=== PATIENT | male | born 1975 | race African-American/Black ===

== ENCOUNTER → 2016-10-02 | Outpatient (CLI) | payer BC ==
[2016-05-17 18:20] VITALS: BP 197/116
[~2016-10-02] MED LIST: AMLO5TAB4 PO; Aspirin PO; CYCL10TA2 PO; HYDR-971 PO; Hydralazine Hcl PO; Hydrocodone/Acetaminophen PO; LABE200T24 PO; LOSA50TA2 PO; NAPR500T8 PO; PANT40TA3 PO; Triamterene/Hydrochlorothiazid PO
--- NOTE | 2016-10-02 08:52 | KCIC ---
PROCEDURE Right ankle radiographs HISTORY Right medial ankle pain for 1 month off and on becoming more constant COMPARISON None FINDINGS Three views of the right ankle are submitted. No acute fracture or dislocation is identified. There is some soft tissue swelling greater laterally about the ankle. There is tiny posterior calcaneal enthesophyte. IMPRESSION 1. No acute osseous abnormality is identified. 2. There is tiny posterior calcaneal enthesophyte. There is some soft tissue swelling. Electronically signed by: Benton Mosley MD (Oct 02, 2016 08:51:05)
== END | disposition home or self-care (01) ==
LOC: KCIC 08:13
PROVIDERS: ATTEND Family Medicine
DX: M77.31 Calcaneal spur, right foot (principal); R60.9 Edema, unspecified
CPT/HCPCS: 73610

== ENCOUNTER → 2017-01-07 | Outpatient (CLI) | payer BC ==
[2016-05-17 18:20] VITALS: BP 197/116
--- NOTE | 2017-01-07 13:16 | KCIC ---
MR of the right ankle and MR of the right posterior foot. HISTORY: Posterior tibial tendon tear. Worsening right medial ankle pain and swelling. Instability. TECHNIQUE: Routine multiplanar sequences are obtained. Right ankle Small partial tear of the posterior tibial tendon at its navicular insertion. No high-grade tear or rupture. Minimal surrounding tendon sheath fluid. The flexor tendons are intact, with minimal tendon sheath fluid. No acute medial ligament tear. Small partial tear of the peroneus longus tendon just distal to the lateral malleolus. No high-grade tear or rupture. Minimal surrounding fluid. The anterior talofibular ligament is thickened and heterogeneous as is the calcaneofibular ligament and posterior talofibular ligament, compatible with partial tearing or more chronic scarring, depending on the acuity of injury or symptoms. Anterior inferior tibiofibular ligament is also demonstrates evidence of scarring or less likely partial tearing. Anterior tibial and extensor tendons are intact. The Achilles tendon is intact. There is a tiny fluid collection or cyst along the anterior surface of the distal Achilles tendon. Tiny calcaneal enthesophyte at the insertion No acute plantar fasciitis. Subtalar joints are patent. The tarsal sinus is edematous. No internal architectural distortion. Talar dome is intact. No evidence of bone lesion or acute fracture. There is trace fluid in the talonavicular joint recess, superolaterally. Trace fluid in the tibiotalar joint and subtalar joint. Right foot Mild intramuscular edema at the plantar aspect of the foot. The Lisfranc ligament complex appears intact as does tarsometatarsal alignment. Subchondral cystic change at the distal navicular bone and intermediate cuneiform bone appears degenerative, and there is osteophyte formation the superior and medial aspect of this joint. Degenerative change and dorsal spurring also identified at the talonavicular joint. IMPRESSION: 1. Small partial tear of the posterior tibial tendon at the navicular attachment. No high-grade tear or rupture. 2. Small partial tear of the peroneus longus tendon just distal to the lateral malleolus without high-grade tear or rupture. 3. Partial tearing versus more chronic scarring of the lateral ankle ligaments and the anterior inferior tibial fibular syndesmotic ligament. 4. Degenerative changes at the midfoot. Electronically signed by: Ranulfo Mcdaniels MD (01/07/2017 1:13 PM)
== END | disposition home or self-care (01) ==
LOC: KCIC MRI 10:40
PROVIDERS: ATTEND Podiatrist Foot & Ankle Surgery
DX: S96.811A Strain of other specified muscles and tendons at ankle and foot level, right foot, initial encounter (principal); X58.XXXA Exposure to other specified factors, initial encounter; Y93.9 Activity, unspecified; Y92.9 Unspecified place or not applicable; Y99.9 Unspecified external cause status
CPT/HCPCS: 73718; 73721

== ENCOUNTER → 2017-02-17 | Outpatient (CLI) | payer BC ==
[2016-05-17 18:20] VITALS: BP 197/116
== END | disposition home or self-care (01) ==
LOC: ECHO 08:43
PROVIDERS: ATTEND Internal Medicine Cardiovascular Disease
DX: R94.31 Abnormal electrocardiogram [ECG] [EKG] (principal)
CPT/HCPCS: 93306

== ENCOUNTER → 2017-09-15 | Outpatient (CLI) | payer BC | END | disposition home or self-care (01) | LOC: KCIC MRI 08:31 | DX: S92.001A Unspecified fracture of right calcaneus, initial encounter for closed fracture (principal); M76.821 Posterior tibial tendinitis, right leg; X58.XXXA Exposure to other specified factors, initial encounter; Y93.89 Activity, other specified; Y92.89 Other specified places as the place of occurrence of the external cause; Y99.8 Other external cause status | CPT/HCPCS: 73721 ==

== ENCOUNTER 2019-05-13 21:14 | Inpatient (IN) | payer SELFPAY ==
[~2019-05-13] VITALS: Ht 180.3 cm; Wt 178.8 kg
[~2019-05-13 21:14] MED LIST changes: +HYDR-3164 PO; -HYDR-971 PO; +LOSA-73 PO; -LOSA50TA2 PO; -PANT40TA3 PO; +PANT40TA77 PO
[2019-05-13 21:45] LABS: BASO # 0.1 x10^3/uL (0.0-0.2); BASO % 1 % (0-3); EOS # 0.1 x10^3/uL (0.0-0.7); EOS % 2 % (0-3); HEMATOCRIT 49.8 % (39.0-53.0); HEMOGLOBIN 15.8 g/dL (13.0-17.5); LYMPH # 1.4 x10^3/uL (1.0-4.8); LYMPH % 22 % (24-48); MEAN CORPUSCULAR HEMOGLOBIN 26 pg (25-35); MEAN CORPUSCULAR HGB CONC 32 g/dL (31-37); MEAN CORPUSCULAR VOLUME 82 fL (79-100); MONO # 0.7 x10^3/uL (0.0-1.1); MONO % 11 % (0-9); NEUT % 65 % (31-73); PLATELET COUNT 230 x10^3/uL (140-400); RED BLOOD COUNT 6.08 x10^6/uL (4.30-5.70); RED CELL DISTRIBUTION WIDTH 16.9 % (11.5-14.5); WHITE BLOOD COUNT 6.2 x10^3/uL (4.0-11.0)
[2019-05-13] MEDS ORDERED: NITROGLYCERIN PREMIX 250 ML IV ONE (21:45)
[2019-05-13] MEDS ORDERED: ASPIRIN CHEWABLE 81 MG TABLET. PO ONE (21:45)
[2019-05-13 21:54] LABS: CALCIUM 9.1 mg/dL (8.5-10.1); CREATININE 1.3 mg/dL (0.7-1.3); GFR 73.3; POTASSIUM 3.7 mmol/L (3.5-5.1)
[2019-05-13 21:55] LABS: PROTHROMBIN TIME PATIENT 12.3 SEC (11.7-14.0)
[2019-05-13] MEDS ORDERED: LABETALOL 20 MG/4 ML DISP.SYRIN. IVP ONE (22:00)
[2019-05-13 22:01] LABS: ALBUMIN 3.4 g/dL (3.4-5.0); ALBUMIN/GLOBULIN RATIO 0.6 (1.0-1.7); TOTAL BILIRUBIN 0.4 mg/dL (0.2-1.0); TOTAL PROTEIN 8.7 g/dL (6.4-8.2)
[2019-05-13] MEDS: NITROGLYCERIN SUBLINGUAL 0.4 MG BOTTLE OF 25. SL PRN ×2 (22:07→22:22)
[2019-05-13] MEDS ORDERED: NITROGLYCERIN SUBLINGUAL 0.4 MG BOTTLE OF 25. SL PRN (23:30)
[2019-05-13] MEDS ORDERED: NITROGLYCERIN OINT 1 GM PACKET. TP ONE (23:30)
[2019-05-14] VITALS (26 sets, daily range): BP systolic 136–223; BP diastolic 56–156
--- NOTE | 2019-05-14 00:29 | PHYS DOC ---
Past Medical History Past Medical History: Anxiety, CHF, Hypertension, Other Additional Past Medical Histor: MENINGITIS, PREDIABETES, SLEEP APNEA Past Surgical History: Appendectomy Additional Past Surgical Histo: hernia repair, right thumb/index/third finger firework amputation, R ANKLE Alcohol Use: None Drug Use: None Adult General Chief Complaint Chief Complaint: SHORTNESS OF BREATH HPI HPI Patient is a 44 year old male who presents with 1 day of shortness of breath a nd chest discomfort patient says that is just really hard to get a deep breath he feels like he is gasping for air it is worse when he is lying flat or trying to walk across the room. He says he gets chest pain when asked him how to describe it he says it is just so hard to get air it feels tight when he is breathing. He also feels like there is some pressure in the chest like as though he was hit on the chest at times. This has been constant all day long worse with exertion but that worse around 5 PM patient has been off of his blood pressure medication for a while now Review of Systems Review of Systems Constitutional: Denies fever or chills [] Eyes: Denies change in visual acuity, redness, or eye pain [] HENT: Denies nasal congestion or sore throat [] Respiratory: : Denies dysuria or hematuria [] Musculoskeletal: Denies back pain or joint pain [] Integument: Denies rash or skin lesions [] Neurologic: Denies headache, focal weakness or sensory changes [] Endocrine: Denies polyuria or polydipsia [] All other systems were reviewed and found to be within normal limits, except as documented in this note. Current Medications Current Medications Current Medications Medications (Trade) Dose Ordered Sig/Stacie Start Time Stop Time Status Last Admin Dose Admin Aspirin (Children'S Aspirin) 324 mg 1X ONCE 05/13/19 21:45 05/13/19 21:46 DC 05/13/19 21:59 324 MG Labetalol HCl (Normodyne Iv Push) 20 mg 1X ONCE 05/13/19 22:00 05/13/19 22:01 DC 05/13/19 21:58 20 MG Nitroglycerin (Nitrostat) 0.4 mg PRN Q5MIN PRN 05/13/19 22:00 05/13/19 23:31 DC 05/13/19 22:22 0.4 MG Nitroglycerin/ Dextrose 250 ml @ 0 mls/hr 1X ONCE 05/13/19 21:45 05/13/19 21:46 DC Allergies Allergies Allergies Coded Allergies Type Severity Reaction Last Updated Verified Cephalosporins Allergy Intermediate SLIGHT ITCHING WITH ROCEPHIN 12/30/14 Yes Physical Exam Physical Exam Constitutional: Well developed, OBESE HENT: Normocephalic, atraumatic, bilateral external ears normal, oropharynx moist, no oral exudates, nose normal. [] Eyes: PERRLA, EOMI, conjunctiva normal, no discharge. [] Neck: Normal range of motion, no tenderness, supple, no stridor. [] Cardiovascular:H very difficult cardiopulmonary exam due to the patient's body habitus however I did feel that there were some crackles at the bilateral lung bases more on the right. Mild increase in respiratory effort Lungs & Thorax: See above Abdomen: Bowel sounds normal, soft, no tenderness, no masses, no pulsatile masses. [] Skin: Warm, dry, no erythema, no rash. [] Back: No tenderness, no CVA tenderness. [] Extremities: No tenderness, no cyanosis, no clubbing, ROM intact, dependent edema due to body habitus most likely Neurologic: Alert and oriented X 3, normal motor function, normal sensory function, no focal deficits noted. [] Psychologic: Affect normal, judgement normal, mood normal. [] Current Patient Data Vital Signs Vital Signs Date Time Temp Pulse Resp B/P (MAP) Pulse Ox O2 Delivery O2 Flow Rate FiO2 05/13/19 22:22 73 185/109 05/13/19 21:15 98.3 24 99 Room Air 98.3 Initial BP was 240/160 Lab Values Laboratory Tests Test 05/13/19 21:27 White Blood Count 6.2 x10^3/uL (4.0-11.0) Red Blood Count 6.08 x10^6/uL (4.30-5.70) H Hemoglobin 15.8 g/dL (13.0-17.5) Hematocrit 49.8 % (39.0-53.0) Mean Corpuscular Volume 82 fL (79-100) Mean Corpuscular Hemoglobin 26 pg (25-35) Mean Corpuscular Hemoglobin Concent 32 g/dL (31-37) Red Cell Distribution Width 16.9 % (11.5-14.5) H Platelet Count 230 x10^3/uL (140-400) Neutrophils (%) (Auto) 65 % (31-73) Lymphocytes (%) (Auto) 22 % (24-48) L Monocytes (%) (Auto) 11 % (0-9) H Eosinophils (%) (Auto) 2 % (0-3) Basophils (%) (Auto) 1 % (0-3) Neutrophils # (Auto) 4.0 x10^3/uL (1.8-7.7) Lymphocytes # (Auto) 1.4 x10^3/uL (1.0-4.8) Monocytes # (Auto) 0.7 x10^3/uL (0.0-1.1) Eosinophils # (Auto) 0.1 x10^3/uL (0.0-0.7) Basophils # (Auto) 0.1 x10^3/uL (0.0-0.2) Prothrombin Time 12.3 SEC (11.7-14.0) Prothrombin Time INR 0.9 (0.8-1.1) Sodium Level 143 mmol/L (136-145) Potassium Level 3.7 mmol/L (3.5-5.1) Chloride Level 102 mmol/L (98-107) Carbon Dioxide Level 34 mmol/L (21-32) H Anion Gap 7 (6-14) Blood Urea Nitrogen 17 mg/dL (8-26) Creatinine 1.3 mg/dL (0.7-1.3) Estimated GFR (Cockcroft-Gault) 73.3 BUN/Creatinine Ratio 13 (6-20) Glucose Level 127 mg/dL (70-99) H Calcium Level 9.1 mg/dL (8.5-10.1) Total Bilirubin 0.4 mg/dL (0.2-1.0) Aspartate Amino Transferase (AST) 25 U/L (15-37) Alanine Aminotransferase (ALT) 31 U/L (16-63) Alkaline Phosphatase 67 U/L (46-116) Troponin I Quantitative 0.021 ng/mL (0.000-0.055) QL-Jfr-D-Type Natriuretic Peptide 696 pg/mL (0-124) H Total Protein 8.7 g/dL (6.4-8.2) H Albumin 3.4 g/dL (3.4-5.0) Albumin/Globulin Ratio 0.6 (1.0-1.7) L Laboratory Tests 05/13/19 21:27 Laboratory Tests 05/13/19 21:27 EKG EKG []EKG shows a normal sinus rhythm with an incomplete right bundle branch block in light of that there was no obvious STEMI seen borderline ST elevation in V1 and V2 but really did not meet criteria for STEMI there is also nonspecific changes laterally as well. Rate of 78 QTC 494 Radiology/Procedures Radiology/Procedures [] Impressions: My interpretation of chest x-ray did show cardiomegaly as well as bilateral mild pulmonary edema most likely Course & Med Decision Making Course & Med Decision Making Pertinent Labs and Imaging studies reviewed. (See chart for details) [] Critical care time was 35 minutes exclusive of procedures. For management of hypertensive urgency with blood pressure of 240/160 on initial evaluation requiring IV blood pressure control. In summary this is a 44-year-old male with a prior history of hypertension obesity who is presenting with dyspnea and chest pain likely related to hypertensive urgency initial troponin negative EKG nonspecific but no obvious STEMI was identified chest x-ray looks like poor inspiration due to body habitus but there may be some mild pulmonary edema present he had improved blood pressure and improved symptoms after nitroglycerin sublingual and IV labetalol. We actually did not have to end up to initiating a nitro drip at this time Nitropaste was added blood pressure on reevaluation was in the 160-180 range patient be admitted to the service of Dr. Chisholm for serial troponins cardiology consultation and further evaluation and management. At this point time no obvious evidence of PE or dissection Dragon Disclaimer Dragon Disclaimer This electronic medical record was generated, in whole or in part, using a voice recognition dictation system. Departure Departure Impression: Primary Impression: Accelerated hypertension Additional Impression: Chest pain Disposition: ADMITTED INPATIENT Admitting Physician: HIMS Condition: STABLE Referrals: EFFIE CALLES MD (PCP) Problem Qualifiers CARISA MARIN MD May 14, 2019 00:29
--- NOTE | 2019-05-14 02:00 | NUR ---
pt admitted with chest pain, hypertensive crisis. a/o x4, bp elevated on nitro gtt. admission packet given, poc explained call light in place will cont to monitor pt status and safety. pmrn
[2019-05-14] MEDS ORDERED: MORPHINE SULFATE 4 MG/ML VIAL. IV PRN (02:15)
[2019-05-14] MEDS ORDERED: NITROGLYCERIN PREMIX 250 ML IV PRN (04:45)
--- NOTE | 2019-05-14 04:47 | RAD ---
Study: PORTABLE CHEST 1V Indication: Shortness of breath. Comparison: 12/25/2014 Findings: The cardiomediastinal silhouette is enlarged. The central vascular structures are congested. Increased interstitial markings. No large layering effusion is appreciated however the lower lung zones, particularly the left, not well evaluated due to beam attenuation. No pneumothorax. No lobar infiltrate. Impression: Cardiomegaly, central vascular congestion and pulmonary edema. No large effusion identified however the lower lung zones are not well evaluated due to beam attenuation. Electronically signed by: CLIFTON HUBER MD (05/14/2019 4:43 AM) [facility]
[2019-05-14] MEDS ORDERED: FURO-68 PO (04:55)
[2019-05-14] MEDS ORDERED: POTA20TA82 PO (04:55)
[2019-05-14] MEDS ORDERED: ACET500T68 PO (04:55)
[2019-05-14] MEDS ORDERED: HYDR12.58 PO (04:55)
[2019-05-14] MEDS ORDERED: CARV25TA2 PO (04:55)
[2019-05-14] MEDS ORDERED: CEPH500C PO (04:55)
[2019-05-14] MEDS ORDERED: LISI1TAB19 PO (04:55)
[2019-05-14] MEDS ORDERED: NON FORMULARY ITEM (Lisinopril/Hydrochlorothiazide (Lisinopril-Hctz 20-12.5 Mg Tab) 1 TAB) PO SCH (09:00)
[2019-05-14] MEDS ORDERED: LISINOPRIL 20 MG TABLET PO SCH (09:00)
[2019-05-14] MEDS: CARVEDILOL 12.5 MG TABLET. PO SCH ×2 (09:12→17:23)
[2019-05-14] MEDS: amLODIPine BESYLATE 10 MG TABLET PO SCH (09:12)
[2019-05-14] MEDS: LABETALOL 20 MG/4 ML DISP.SYRIN. IVP PRN (09:20)
--- NOTE | 2019-05-14 11:15 | EKG ---
[facility] [address] [place] [address] Test Date: 2019-05-13 Test Time: 21:19:53 Pat Name: ZARA CONLEY Department: Room: 210 1 Gender: M Entry Level Financial Analyst: : 1975 Requested By: CARISA MARIN Order Number: [id number] Reading MD: Geronimo Cisneros MD Measurements Intervals [place] Rate: 78 P: 66 MI: 182 QRS: 52 QRSD: 110 T: 104 QT: 430 QTc: 494 Interpretive Statements SINUS RHYTHM RBBB NON-SPECIFIC ST/T CHANGES Electronically Signed On 05-23-2019 9:52:05 CDT by Geronimo Cisneros MD
--- NOTE | 2019-05-14 11:22 | PDOC1 ---
History and Physical Date of Admission Date of Admission DATE: 05/14/19 TIME: 11:21 Source Source: Chart review, Patient History of Present Illness History of Present Illness Mr. Billy, is a 44 year old male admit with chest pain. He has one day of severe pain with weakness and shortness of breath. He has new trouble with breathing and it causes him pain, complained od 10/10 pain, but then was incoherent after 4mg IV morphine given this AM still in pain, dyspnea with chest pain, has been unable to sleep., has new orthopnea, and pain with dyspnea on exertion. He also feels like there is some pressure in the chest like as though he was hit on the chest at times. T Past Medical History Cardiovascular: HTN, Hyperlipidemia Pulmonary: Other CENTRAL NERVOUS SYSTEM: Other GI: GERD Heme/Onc: No pertinent hx Hepatobiliary: No pertinent hx Psych: Depression Musculoskeletal: Osteoarthritis, Other Rheumatologic: No pertinent hx Infectious disease: No pertinent hx Renal/: No pertinent hx Endocrine: No pertinent hx Past Surgical History Past Surgical History: Other Family History Family History: Coronary Artery Disease Social History Smoke: <1 pack per day ALCOHOL: rare Drugs: None Current Problem List Problem List Problems Medical Problems: (1) Accelerated hypertension Status: Acute (2) Chest pain Status: Acute Current Medications Current Medications Current Medications Labetalol HCl (Normodyne Iv Push) 20 mg 1X ONCE IVP Last administered on 05/13/19at 21:58; Start 05/13/19 at 22:00; Stop 05/13/19 at 22:01; Status DC Nitroglycerin/ Dextrose 250 ml @ 0 mls/hr 1X ONCE IV Last administered on 05/14/19at 01:02; Start 05/13/19 at 21:45; Stop 05/13/19 at 21:46; Status DC Aspirin (Children'S Aspirin) 324 mg 1X ONCE PO Last administered on 05/13/19at 21:59; Start 05/13/19 at 21:45; Stop 05/13/19 at 21:46; Status DC Nitroglycerin (Nitrostat) 0.4 mg PRN Q5MIN PRN SL CHEST PAIN Last administered on 05/13/19at 22:22; Start 05/13/19 at 22:00; Stop 05/13/19 at 23:31; Status DC Nitroglycerin (Nitro-Bid Oint) 1 inch 1X ONCE TP Last administered on 05/13/19at 23:42; Start 05/13/19 at 23:30; Stop 05/13/19 at 23:31; Status DC Nitroglycerin (Nitrostat) 0.4 mg PRN Q5MIN PRN SL CHEST PAIN; Start 05/13/19 at 23:30; Stop 05/14/19 at 23:29 Labetalol HCl (Normodyne Iv Push) 20 mg PRN Q2HR PRN IVP ELEVATED BP, SEE COMMENTS Last administered on 05/14/19at 09:20; Start 05/13/19 at 23:30 Morphine Sulfate (Morphine Sulfate) 4 mg PRN Q4HRS PRN IV pain Last administered on 05/14/19at 06:30; Start 05/14/19 at 02:15 Nitroglycerin/ Dextrose 250 ml @ 1.5 mls/hr CONT PRN IV SEE I/O RECORD; Start 05/14/19 at 04:45 Acetaminophen (Tylenol) 500 mg PRN Q6HRS PRN PO MILD PAIN / TEMP; Start at 08:33 Amlodipine Besylate (Norvasc) 10 mg DAILY PO Last administered on 05/14/19at 09:12; Start 05/14/19 at 09:00 Furosemide (Lasix) 40 mg DAILY PO ; Start 05/14/19 at 09:00 Carvedilol (Coreg) 25 mg BIDWMEALS PO Last administered on 05/14/19at 09:12; Start 05/14/19 at 09:00 Cephalexin HCl (Keflex) 500 mg BID PO ; Start 05/14/19 at 09:00 Non-Formulary Medication (Lisinopril/ Hydrochlorothiazide (Lisinopril-Hctz 20- 12.5 Mg Tab)) 1 tab DAILY PO ; Start 05/14/19 at 09:00; Status UNV Potassium Chloride (Klor-Con) 20 meq DAILYWBKFT PO ; Start 05/14/19 at 09:00 Lisinopril (Prinivil) 20 mg DAILY PO ; Start 05/14/19 at 09:00 Hydrochlorothiazide (Microzide) 12.5 mg DAILY PO ; Start 05/14/19 at 09:00 Active Scripts Active Norvasc (Amlodipine Besylate) 5 Mg Tablet 10 Mg PO DAILY Reported Carvedilol 25 Mg Tablet 25 Mg PO BIDWMEALS Cephalexin 500 Mg Capsule 1 Cap PO BID Potassium Chloride 20 Meq Tablet.er 20 Meq PO DAILY Acetaminophen 500 Mg Tablet 500 Mg PO Q6HRS Lisinopril-Hctz 20-12.5 Mg Tab (Lisinopril/Hydrochlorothiazide) 1 Each Tablet 1 Tab PO DAILY Hydrochlorothiazide Tablet (Hydrochlorothiazide) 12.5 Mg Tablet 12.5 Mg PO DAILY Lasix (Furosemide) 40 Mg Tablet 1 Tab PO DAILY Allergies Allergies: Coded Allergies: ceftriaxone (Verified Allergy, Mild, mild itching, 05/14/19) Tolerates Keflex ROS General: YES: Chills, Fatigue, Malaise PSYCHOLOGICAL ROS: YES: Irritablity, Sleep disturbances; No: Anxiety, Behavioral Disorder, Concentration difficultie, Decreased libido, Depression, Disorientation, Hallucinations, Hostility, Memory difficulties, Mood Swings, Obsessive thoughts, Physical abuse, Sexual abuse, Suicidal ideation, Other Eyes: No Blurry vision, No Decreased vision, No Double vision, No Dry eyes, No Excessive tearing, No Eye Pain, No Itchy Eyes, No Loss of vision, No Photophobia, No Scotomata, No Uses contacts, No Uses glasses, No Other HEENT: YES: Heacaches Respiratory: YES: Shortness of breath, SOB with excertion; No: Cough, Hemoptysis, Orthopnea, Pleuritic Pain, Sputum Changes, Stridor, Tachypnea, Wheezing, Other Cardiovascular: yes Chest Pain, yes Orthopnea, yes Edema, yes Other Gastrointestinal: Yes Nausea; No Vomiting, No Abdominal Pain, No Diarrhea, No Constipation, No Melena, No Hematochezia, No Other Genitourinary: No Dysuria, No Frequency, No Incontinence, No Hematuria, No Retention, No Discharge, No Urgency, No Pain, No Flank Pain, No Other, No , No , No , No , No , No , No Musculoskeletal: Yes Gait Disturbance, Yes Joint Pain, Yes Joint Stiffness, Yes Pain In: (ankle, chest); No Joint Swelling, No Muscle Pain, No Muscular Weakness, No Swelling In:, No Other Neurological: Yes Gait Disturbance; No Behavorial Changes, No Bowel/Bladder ControlChng, No Confusion, No Dizziness, No Headaches, No Impaired Coord/balance, No Memory Loss, No Nu mbness/Tingling, No Seizures, No Speech Problems, No Tremors, No Visual Changes, No Weakness, No Other Skin: No Dry Skin, No Eczema, No Hair Changes, No Lumps, No Mole Changes, No Mottling, No Nail Changes, No Pruritus, No Rash, No Skin Lesion Changes, No Other, No Acne Physical Exam General: Alert, Oriented X3, Cooperative, mild distress, moderate distress HEENT: PERRLA, EOMI, Mucous membr. moist/pink Lungs: Clear to auscultation Heart: S1S2, RRR Abdomen: Normal bowel sounds, Soft Extremities: No clubbing, Other (right ankle painful, poor morbility) Skin: No rashes Neuro: Normal speech, Sensation intact Psych/Mental Status: Mental status NL, Mood NL Vitals Vitals Vital Signs Date Time Temp Pulse Resp B/P (MAP) Pulse Ox O2 Delivery O2 Flow Rate FiO2 05/14/19 09:20 78 223/87 05/14/19 07:00 Nasal Cannula 2.0 05/14/19 02:16 98.2 20 98.2 05/14/19 01:55 96 Labs Labs Laboratory Tests Test 05/13/19 21:27 05/14/19 02:40 05/14/19 05:30 White Blood Count 6.2 x10^3/uL (4.0-11.0) Red Blood Count 6.08 x10^6/uL (4.30-5.70) Hemoglobin 15.8 g/dL (13.0-17.5) Hematocrit 49.8 % (39.0-53.0) Mean Corpuscular Volume 82 fL (79-100) Mean Corpuscular Hemoglobin 26 pg (25-35) Mean Corpuscular Hemoglobin Concent 32 g/dL (31-37) Red Cell Distribution Width 16.9 % (11.5-14.5) Platelet Count 230 x10^3/uL (140-400) Neutrophils (%) (Auto) 65 % (31-73) Lymphocytes (%) (Auto) 22 % (24-48) Monocytes (%) (Auto) 11 % (0-9) Eosinophils (%) (Auto) 2 % (0-3) Basophils (%) (Auto) 1 % (0-3) Neutrophils # (Auto) 4.0 x10^3/uL (1.8-7.7) Lymphocytes # (Auto) 1.4 x10^3/uL (1.0-4.8) Monocytes # (Auto) 0.7 x10^3/uL (0.0-1.1) Eosinophils # (Auto) 0.1 x10^3/uL (0.0-0.7) Basophils # (Auto) 0.1 x10^3/uL (0.0-0.2) Prothrombin Time 12.3 SEC (11.7-14.0) Prothromb Time International Ratio 0.9 (0.8-1.1) Sodium Level 143 mmol/L (136-145) Potassium Level 3.7 mmol/L (3.5-5.1) Chloride Level 102 mmol/L (98-107) Carbon Dioxide Level 34 mmol/L (21-32) Anion Gap 7 (6-14) Blood Urea Nitrogen 17 mg/dL (8-26) Creatinine 1.3 mg/dL (0.7-1.3) Estimated GFR (Cockcroft-Gault) 73.3 BUN/Creatinine Ratio 13 (6-20) Glucose Level 127 mg/dL (70-99) Calcium Level 9.1 mg/dL (8.5-10.1) Total Bilirubin 0.4 mg/dL (0.2-1.0) Aspartate Amino Transf (AST/SGOT) 25 U/L (15-37) Alanine Aminotransferase (ALT/SGPT) 31 U/L (16-63) Alkaline Phosphatase 67 U/L (46-116) Troponin I Quantitative 0.021 ng/mL (0.000-0.055) < 0.017 ng/mL (0.000-0.055) < 0.017 ng/mL (0.000-0.055) BB-Lti-Q-Type Natriuretic Peptide 696 pg/mL (0-124) Total Protein 8.7 g/dL (6.4-8.2) Albumin 3.4 g/dL (3.4-5.0) Albumin/Globulin Ratio 0.6 (1.0-1.7) Laboratory Tests Test 05/13/19 21:27 05/14/19 02:40 05/14/19 05:30 White Blood Count 6.2 x10^3/uL (4.0-11.0) Red Blood Count 6.08 x10^6/uL (4.30-5.70) Hemoglobin 15.8 g/dL (13.0-17.5) Hematocrit 49.8 % (39.0-53.0) Mean Corpuscular Volume 82 fL (79-100) Mean Corpuscular Hemoglobin 26 pg (25-35) Mean Corpuscular Hemoglobin Concent 32 g/dL (31-37) Red Cell Distribution Width 16.9 % (11.5-14.5) Platelet Count 230 x10^3/uL (140-400) Neutrophils (%) (Auto) 65 % (31-73) Lymphocytes (%) (Auto) 22 % (24-48) Monocytes (%) (Auto) 11 % (0-9) Eosinophils (%) (Auto) 2 % (0-3) Basophils (%) (Auto) 1 % (0-3) Neutrophils # (Auto) 4.0 x10^3/uL (1.8-7.7) Lymphocytes # (Auto) 1.4 x10^3/uL (1.0-4.8) Monocytes # (Auto) 0.7 x10^3/uL (0.0-1.1) Eosinophils # (Auto) 0.1 x10^3/uL (0.0-0.7) Basophils # (Auto) 0.1 x10^3/uL (0.0-0.2) Prothrombin Time 12.3 SEC (11.7-14.0) Prothromb Time International Ratio 0.9 (0.8-1.1) Sodium Level 143 mmol/L (136-145) Potassium Level 3.7 mmol/L (3.5-5.1) Chloride Level 102 mmol/L (98-107) Carbon Dioxide Level 34 mmol/L (21-32) Anion Gap 7 (6-14) Blood Urea Nitrogen 17 mg/dL (8-26) Creatinine 1.3 mg/dL (0.7-1.3) Estimated GFR (Cockcroft-Gault) 73.3 BUN/Creatinine Ratio 13 (6-20) Glucose Level 127 mg/dL (70-99) Calcium Level 9.1 mg/dL (8.5-10.1) Total Bilirubin 0.4 mg/dL (0.2-1.0) Aspartate Amino Transf (AST/SGOT) 25 U/L (15-37) Alanine Aminotransferase (ALT/SGPT) 31 U/L (16-63) Alkaline Phosphatase 67 U/L (46-116) Troponin I Quantitative 0.021 ng/mL (0.000-0.055) < 0.017 ng/mL (0.000-0.055) < 0.017 ng/mL (0.000-0.055) EX-Sdy-V-Type Natriuretic Peptide 696 pg/mL (0-124) Total Protein 8.7 g/dL (6.4-8.2) Albumin 3.4 g/dL (3.4-5.0) Albumin/Globulin Ratio 0.6 (1.0-1.7) VTE Prophylaxis Ordered VTE Prophylaxis Devices: Yes VTE Pharmacological Prophylaxi: No Assessment/Plan Assessment/Plan chest pain, angina accelerated, malignant hypertension morbid obesity, BMI 53 tobacco use disorder acute on chronic pain acute diastolc CHF longstanding hypertension RITA MCLAUGHLIN MD May 14, 2019 11:22
[2019-05-14] MEDS ORDERED: LISINOPRIL 20 MG TABLET PO ONE (12:00)
[2019-05-14] MEDS: CEPHALEXIN 250 MG CAPSULE. PO SCH ×2 (12:47→20:19)
[2019-05-14] MEDS: POTASSIUM CHLORIDE 20 MEQ TABLET.ER. PO SCH (12:48)
[2019-05-14] MEDS: hydroCHLOROthiazide 12.5 MG CAPSULE PO SCH (12:49)
[2019-05-14] MEDS: hydrALAZINE 25 MG TABLET PO SCH ×2 (12:49→20:19)
[2019-05-14] MEDS: FUROSEMIDE 40 MG TABLET. PO SCH (12:50)
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
[2019-05-14] MEDS: ACETAMINOPHEN 500 MG TABLET PO PRN (17:23)
[2019-05-15] VITALS (7 sets, daily range): BP systolic 112–197; BP diastolic 53–100
[2019-05-15] MEDS: LABETALOL 20 MG/4 ML DISP.SYRIN. IVP PRN (04:24)
[2019-05-15] MEDS: ACETAMINOPHEN 500 MG TABLET PO PRN (04:58)
[2019-05-15 06:25] LABS: CALCIUM 8.9 mg/dL (8.5-10.1); CREATININE 1.1 mg/dL (0.7-1.3); GFR 88.8; POTASSIUM 4.1 mmol/L (3.5-5.1)
[2019-05-15 06:26] LABS: CHOLESTEROL/HDL RATIO 3.8
[2019-05-15] MEDS: hydroCHLOROthiazide 12.5 MG CAPSULE PO SCH (09:29)
[2019-05-15] MEDS: FUROSEMIDE 40 MG TABLET. PO SCH (09:29)
[2019-05-15] MEDS: CEPHALEXIN 250 MG CAPSULE. PO SCH ×2 (09:29→21:00)
[2019-05-15] MEDS: POTASSIUM CHLORIDE 20 MEQ TABLET.ER. PO SCH (09:29)
[2019-05-15] MEDS: hydrALAZINE 25 MG TABLET PO SCH (09:33)
[2019-05-15] MEDS: amLODIPine BESYLATE 10 MG TABLET PO SCH (09:33)
[2019-05-15] MEDS: LISINOPRIL 20 MG TABLET PO SCH (09:34)
[2019-05-15] MEDS: CARVEDILOL 12.5 MG TABLET. PO SCH ×2 (09:35→18:00)
--- NOTE | 2019-05-15 10:31 | RAD ---
ANKLE RIGHT 3V 05/15/2019 9:44 AM INDICATION: Chronic right ankle and foot pain COMPARISON: MRI right ankle 09/15/2017, right ankle radiograph 10/02/2016 TECHNIQUE: 3 views the right ankle are provided. FINDINGS/ IMPRESSION: 1. Interval talocalcaneal arthrodesis is noted with 3 partially threaded screws. No significant lucency is identified surrounding the hardware. There is no acute fracture. 2. There may be small ankle joint effusion. 3. Tibial plafond and talar dome are intact. Ankle mortise is congruent. Mild to moderate soft tissue swelling. If there is persistent clinical concern, short-term follow-up radiographs or cross-sectional imaging may be of benefit. Electronically signed by: Brook Clayton MD (05/15/2019 10:28 AM) [facility]
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
[2019-05-15] MEDS ORDERED: FURO-68 PO (12:32)
[2019-05-15] MEDS ORDERED: LISI-130 PO (12:32)
[2019-05-15] MEDS ORDERED: AMLO10TA8 PO (12:32)
[2019-05-15] MEDS ORDERED: CARV25TA2 PO (12:32)
[2019-05-15] MEDS ORDERED: HYDR12.58 PO (12:32)
[2019-05-15] MEDS ORDERED: POTA20TA82 PO (12:32)
--- NOTE | 2019-05-15 13:57 | NUR ---
SS following for discharge planning. SS reviewed pt chart. Pt is self pay pt. HCFS following for self pay status. Pt is from home. Discharge order on the chart for home with self care.
[2019-05-15] MEDS: DICLOFENAC SODIUM 1% TOPICAL GEL 100GM TUBE. TP SCH ×2 (14:17→21:00)
--- NOTE | 2019-05-15 15:48 | PDOC ---
PROGRESS NOTES Chief Complaint Chief Complaint chest pain, angina accelerated, malignant hypertension morbid obesity, BMI 53 tobacco use disorder acute on chronic pain acute diastolc CHF longstanding hypertension QUITA, long apneic spells noted by night nurse History of Present Illness History of Present Illness he feels better, but still has hypoxia, and dyspnea and cough will try to wean 02, check 6 min walk in AM cont current would benefit from sleep study right ankle pain, severe, Dr. Chung recommended that he wears the cam walker boot that he already has Vitals Vitals Vital Signs Date Time Temp Pulse Resp B/P (MAP) Pulse Ox O2 Delivery O2 Flow Rate FiO2 05/15/19 11:00 97.7 82 20 153/75 (101) 92 Nasal Cannula 3.0 97.7 Physical Exam General: Alert, No acute distress Heart: Regular rate Abdomen: Normal bowel sounds Extremities: No clubbing, Other (right ankle painful, poor morbility) Skin: No rashes Labs LABS Laboratory Tests Test 05/15/19 05:00 Sodium Level 142 mmol/L (136-145) Potassium Level 4.1 mmol/L (3.5-5.1) Chloride Level 100 mmol/L (98-107) Carbon Dioxide Level 35 mmol/L (21-32) Anion Gap 7 (6-14) Blood Urea Nitrogen 14 mg/dL (8-26) Creatinine 1.1 mg/dL (0.7-1.3) Estimated GFR (Cockcroft-Gault) 88.8 Glucose Level 102 mg/dL (70-99) Calcium Level 8.9 mg/dL (8.5-10.1) Triglycerides Level 54 mg/dL (0-150) Cholesterol Level 138 mg/dL (0-200) LDL Cholesterol, Calculated 91 mg/dL (0-100) VLDL Cholesterol, Calculated 11 mg/dL (0-40) Non-HDL Cholesterol Calculated 102 mg/dL (0-129) HDL Cholesterol 36 mg/dL (40-60) Cholesterol/HDL Ratio 3.8 Assessment and Plan Assessmemt and Plan Problems Medical Problems: (1) Accelerated hypertension Status: Acute (2) Chest pain Status: Acute Comment Review of Relevant I have reviewed the following items cl (where applicable) has been applied. Labs Laboratory Tests Test 05/13/19 21:27 05/14/19 02:40 05/14/19 05:30 05/15/19 05:00 White Blood Count 6.2 x10^3/uL (4.0-11.0) Red Blood Count 6.08 x10^6/uL (4.30-5.70) Hemoglobin 15.8 g/dL (13.0-17.5) Hematocrit 49.8 % (39.0-53.0) Mean Corpuscular Volume 82 fL (79-100) Mean Corpuscular Hemoglobin 26 pg (25-35) Mean Corpuscular Hemoglobin Concent 32 g/dL (31-37) Red Cell Distribution Width 16.9 % (11.5-14.5) Platelet Count 230 x10^3/uL (140-400) Neutrophils (%) (Auto) 65 % (31-73) Lymphocytes (%) (Auto) 22 % (24-48) Monocytes (%) (Auto) 11 % (0-9) Eosinophils (%) (Auto) 2 % (0-3) Basophils (%) (Auto) 1 % (0-3) Neutrophils # (Auto) 4.0 x10^3/uL (1.8-7.7) Lymphocytes # (Auto) 1.4 x10^3/uL (1.0-4.8) Monocytes # (Auto) 0.7 x10^3/uL (0.0-1.1) Eosinophils # (Auto) 0.1 x10^3/uL (0.0-0.7) Basophils # (Auto) 0.1 x10^3/uL (0.0-0.2) Prothrombin Time 12.3 SEC (11.7-14.0) Prothromb Time International Ratio 0.9 (0.8-1.1) Sodium Level 143 mmol/L (136-145) 142 mmol/L (136-145) Potassium Level 3.7 mmol/L (3.5-5.1) 4.1 mmol/L (3.5-5.1) Chloride Level 102 mmol/L (98-107) 100 mmol/L (98-107) Carbon Dioxide Level 34 mmol/L (21-32) 35 mmol/L (21-32) Anion Gap 7 (6-14) 7 (6-14) Blood Urea Nitrogen 17 mg/dL (8-26) 14 mg/dL (8-26) Creatinine 1.3 mg/dL (0.7-1.3) 1.1 mg/dL (0.7-1.3) Estimated GFR (Cockcroft-Gault) 73.3 88.8 BUN/Creatinine Ratio 13 (6-20) Glucose Level 127 mg/dL (70-99) 102 mg/dL (70-99) Calcium Level 9.1 mg/dL (8.5-10.1) 8.9 mg/dL (8.5-10.1) Total Bilirubin 0.4 mg/dL (0.2-1.0) Aspartate Amino Transf (AST/SGOT) 25 U/L (15-37) Alanine Aminotransferase (ALT/SGPT) 31 U/L (16-63) Alkaline Phosphatase 67 U/L (46-116) Troponin I Quantitative 0.021 ng/mL (0.000-0.055) < 0.017 ng/mL (0.000-0.055) < 0.017 ng/mL (0.000-0.055) HK-Tko-H-Type Natriuretic Peptide 696 pg/mL (0-124) Total Protein 8.7 g/dL (6.4-8.2) Albumin 3.4 g/dL (3.4-5.0) Albumin/Globulin Ratio 0.6 (1.0-1.7) Triglycerides Level 54 mg/dL (0-150) Cholesterol Level 138 mg/dL (0-200) LDL Cholesterol, Calculated 91 mg/dL (0-100) VLDL Cholesterol, Calculated 11 mg/dL (0-40) Non-HDL Cholesterol Calculated 102 mg/dL (0-129) HDL Cholesterol 36 mg/dL (40-60) Cholesterol/HDL Ratio 3.8 Laboratory Tests Test 05/15/19 05:00 Sodium Level 142 mmol/L (136-145) Potassium Level 4.1 mmol/L (3.5-5.1) Chloride Level 100 mmol/L (98-107) Carbon Dioxide Level 35 mmol/L (21-32) Anion Gap 7 (6-14) Blood Urea Nitrogen 14 mg/dL (8-26) Creatinine 1.1 mg/dL (0.7-1.3) Estimated GFR (Cockcroft-Gault) 88.8 Glucose Level 102 mg/dL (70-99) Calcium Level 8.9 mg/dL (8.5-10.1) Triglycerides Level 54 mg/dL (0-150) Cholesterol Level 138 mg/dL (0-200) LDL Cholesterol, Calculated 91 mg/dL (0-100) VLDL Cholesterol, Calculated 11 mg/dL (0-40) Non-HDL Cholesterol Calculated 102 mg/dL (0-129) HDL Cholesterol 36 mg/dL (40-60) Cholesterol/HDL Ratio 3.8 Medications Current Medications Labetalol HCl (Normodyne Iv Push) 20 mg 1X ONCE IVP Last administered on 05/13/19at 21:58; Start 05/13/19 at 22:00; Stop 05/13/19 at 22:01; Status DC Nitroglycerin/ Dextrose 250 ml @ 0 mls/hr 1X ONCE IV Last administered on 05/14/19at 01:02; Start 05/13/19 at 21:45; Stop 05/13/19 at 21:46; Status DC Aspirin (Children'S Aspirin) 324 mg 1X ONCE PO Last administered on 05/13/19at 21:59; Start 05/13/19 at 21:45; Stop 05/13/19 at 21:46; Status DC Nitroglycerin (Nitrostat) 0.4 mg PRN Q5MIN PRN SL CHEST PAIN Last administered on 05/13/19at 22:22; Start 05/13/19 at 22:00; Stop 05/13/19 at 23:31; Status DC Nitroglycerin (Nitro-Bid Oint) 1 inch 1X ONCE TP Last administered on 05/13/19at 23:42; Start 05/13/19 at 23:30; Stop 05/13/19 at 23:31; Status DC Nitroglycerin (Nitrostat) 0.4 mg PRN Q5MIN PRN SL CHEST PAIN; Start 05/13/19 at 23:30; Stop 05/14/19 at 23:29; Status DC Labetalol HCl (Normodyne Iv Push) 20 mg PRN Q2HR PRN IVP ELEVATED BP, SEE COMMENTS Last administered on 05/15/19at 04:24; Start 05/13/19 at 23:30 Morphine Sulfate (Morphine Sulfate) 4 mg PRN Q4HRS PRN IV pain Last administered on 05/14/19at 06:30; Start 05/14/19 at 02:15 Nitroglycerin/ Dextrose 250 ml @ 1.5 mls/hr CONT PRN IV SEE I/O RECORD; Start 05/14/19 at 04:45 Acetaminophen (Tylenol) 500 mg PRN Q6HRS PRN PO MILD PAIN / TEMP Last administered on 05/15/19 04:58; Start 05/14/19 at 08:33 Amlodipine Besylate (Norvasc) 10 mg DAILY PO Last administered on 05/15/19 09:33; Start 05/14/19 at 09:00 Furosemide (Lasix) 40 mg DAILY PO Last administered on 05/15/19 09:29; Start 05/14/19 at 09:00 Carvedilol (Coreg) 25 mg BIDWMEALS PO Last administered on 05/15/19 09:35; Start 05/14/19 at 09:00 Cephalexin HCl (Keflex) 500 mg BID PO Last administered on 05/15/19 09:29; Start 05/14/19 at 09:00 Non-Formulary Medication (Lisinopril/ Hydrochlorothiazide (Lisinopril-Hctz 20- 12.5 Mg Tab)) 1 tab DAILY PO ; Start 05/14/19 at 09:00; Status UNV Potassium Chloride (Klor-Con) 20 meq DAILYWBKFT PO Last administered on 05/15/19 09:29; Start 05/14/19 at 09:00 Lisinopril (Prinivil) 20 mg DAILY PO ; Start 05/14/19 at 09:00; Stop 05/14/19 at 11:25; Status DC Hydrochlorothiazide (Microzide) 12.5 mg DAILY PO Last administered on 05/15/19 09:29; Start 05/14/19 at 09:00 Lisinopril (Prinivil) 40 mg DAILY PO Last administered on 05/15/19 09:34; Start 05/15/19 at 09:00 Lisinopril (Prinivil) 20 mg 1X ONCE PO Last administered on 05/14/19 12:48; Start 05/14/19 at 12:00; Stop 05/14/19 at 12:01; Status DC Hydralazine HCl (Apresoline) 25 mg TID PO Last administered on 05/15/19 09:33; Start 05/14/19 at 12:00; Stop 05/15/19 at 12:01; Status DC Enoxaparin Sodium (Lovenox Per Pharmacy Prophylaxis Dosing) 1 each PRN DAILY PRN MC SEE COMMENTS; Start 05/14/19 at 11:45 Enoxaparin Sodium (Lovenox 60mg Syringe) 60 mg Q12HR SQ Last administered on 05/15/19at 09:36; Start 05/14/19 at 12:00 Diclofenac Sodium (Voltaren) 1 stefan BID TP Last administered on 05/15/19at 14:17; Start 05/15/19 at 10:00 Tramadol HCl (Ultram) 50 mg PRN Q6HRS PRN PO PAIN; Start 05/15/19 at 12:15 Active Scripts Active Amlodipine Besylate 10 Mg Tablet 10 Mg PO DAILY Lisinopril 40 Mg Tablet 40 Mg PO DAILY Carvedilol 25 Mg Tablet 25 Mg PO BIDWMEALS Potassium Chloride 20 Meq Tablet.er 20 Meq PO DAILY Hydrochlorothiazide Tablet (Hydrochlorothiazide) 12.5 Mg Tablet 12.5 Mg PO DAILY Lasix (Furosemide) 40 Mg Tablet 1 Tab PO DAILY Norvasc (Amlodipine Besylate) 5 Mg Tablet 10 Mg PO DAILY Reported Cephalexin 500 Mg Capsule 1 Cap PO BID Acetaminophen 500 Mg Tablet 500 Mg PO Q6HRS Lisinopril-Hctz 20-12.5 Mg Tab (Lisinopril/Hydrochlorothiazide) 1 Each Tablet 1 Tab PO DAILY Vitals/I & O Vital Sign - Last 24 Hours 05/14/19 05/14/19 05/14/19 05/14/19 16:00 17:00 17:23 18:00 Pulse 88 84 90 86 B/P (MAP) 191/83 (119) 196/82 (120) 196/82 197/75 (115) 05/14/19 05/14/19 05/14/19 05/14/19 19:00 19:28 19:40 20:10 Temp 98.1 98.4 98.1 98.4 Pulse 86 86 81 Resp 20 20 B/P (MAP) 148/56 (86) 152/58 (89) 180/73 (108) Pulse Ox 92 96 O2 Delivery Nasal Cannula Nasal Cannula O2 Flow Rate 2.0 2.5 05/14/19 05/14/19 05/15/19 05/15/19 20:19 23:30 03:05 04:24 Temp 98.3 98.1 98.3 98.1 Pulse 86 81 80 80 Resp 16 20 B/P (MAP) 152/58 136/63 (87) 197/90 (125) 197/90 Pulse Ox 92 94 O2 Delivery Nasal Cannula Nasal Cannula O2 Flow Rate 3.0 3.0 05/15/19 05/15/19 05/15/19 05/15/19 05:03 07:00 07:50 09:33 Temp 97.5 97.5 Pulse 81 82 82 Resp 20 B/P (MAP) 181/92 (121) 143/68 (93) 143/68 Pulse Ox 92 O2 Delivery Nasal Cannula Nasal Cannula O2 Flow Rate 3.0 2.0 05/15/19 05/15/19 05/15/19 05/15/19 09:33 09:34 09:35 11:00 Temp 97.7 97.7 Pulse 82 82 82 82 Resp 20 B/P (MAP) 143/68 143/68 143/68 153/75 (101) Pulse Ox 92 O2 Delivery Nasal Cannula O2 Flow Rate 3.0 Intake and Output 05/14/19 05/14/19 05/15/19 14:59 22:59 06:59 Intake Total 720 ml 150 ml Output Total 1600 ml 700 ml Balance -880 ml -550 ml RITA MCLAUGHLIN MD May 15, 2019 15:48
[2019-05-16] VITALS (9 sets, daily range): BP systolic 144–196; BP diastolic 77–119
--- NOTE | 2019-05-16 00:51 | NUR ---
Shows frequent periods of sleep apnea.
[2019-05-16] MEDS: CEPHALEXIN 250 MG CAPSULE. PO SCH ×2 (08:47→22:13)
[2019-05-16] MEDS: amLODIPine BESYLATE 10 MG TABLET PO SCH (08:47)
[2019-05-16] MEDS: POTASSIUM CHLORIDE 20 MEQ TABLET.ER. PO SCH (08:48)
[2019-05-16] MEDS: LISINOPRIL 20 MG TABLET PO SCH ×2 (08:48→22:13)
[2019-05-16] MEDS: CARVEDILOL 12.5 MG TABLET. PO SCH ×2 (08:49→17:31)
[2019-05-16] MEDS: hydroCHLOROthiazide 12.5 MG CAPSULE PO SCH (08:49)
[2019-05-16] MEDS: FUROSEMIDE 40 MG TABLET. PO SCH (08:49)
[2019-05-16] MEDS: DICLOFENAC SODIUM 1% TOPICAL GEL 100GM TUBE. TP SCH ×2 (08:51→22:24)
[2019-05-16] MEDS: traMADol 50 MG TABLET PO PRN ×2 (08:54→16:41)
--- NOTE | 2019-05-16 09:33 | CARD ---
MR#: [id number] Date of Study: 05/16/2019 Ordering Physician: DARRELL JUNG, Referring Physician: DARRELL JUNG, Tech: [facility] APPROVED REPORT EXAM: Two-dimensional and M-mode echocardiogram with Doppler and color Doppler. Other Information Quality : Technically LimitedHR: 80bpm Rhythm : NSRTechnically limited study due to body habitus. INDICATION Congestive Heart Failure 2D DIMENSIONS RVDd3.0 (2.9-3.5cm)Left Atrium(2D)4.6 (1.6-4.0cm) IVSd1.7 (0.7-1.1cm)Aortic Root(2D)2.8 (2.0-3.7cm) LVDd4.3 (3.9-5.9cm)LVOT Diameter2.1 (1.8-2.4cm) PWd1.9 (0.7-1.1cm)LVDs3.1 (2.5-4.0cm) FS (%) 29.3 %SV48.1 ml LVEF(%)56.4 (>50%) M-Mode DIMENSIONS Left Atrium(MM)5.58 (2.5-4.0cm)Aortic Root3.10 (2.2-3.7cm) Aortic Valve AoV Peak Pancho.114.0cm/sAoV VTI22.3cm AO Peak GR.5.2mmHgLVOT Peak Pancho.76.1cm/s AO Mean GR.3mmHgAVA (VMAX)2.20cm2 DEMETRI (VTI)2.20cm2 Mitral Valve MV E Zelqufzp636.6cm/sMV DECEL KOXL281ow MV A Nsnblnsy85.8cm/sE/A Ratio2.8 Pulmonary Valve PV Peak Dapcwyco342.5cm/s Tricuspid Valve TR P. Zfcjwpdh186ln/sRAP [id number] TR Peak Gr.33ldQnVPNR15giEp LEFT VENTRICLE The left ventricle is normal size. There is moderate to severe concentric left ventricular hypertroph y. The left ventricular systolic function is normal and the ejection fraction is within normal range. The Ejection Fraction is 55-60%. There is normal LV segmental wall motion. Transmitral Doppler flow pattern is Grade II-pseudonormal filling dynamics. RIGHT VENTRICLE The right ventricle is normal size. There is normal right ventricular wall thickness. The right ventr icular systolic function is normal. ATRIA The left atrium is moderately dilated. The right atrium is mildly dilated. The interatrial septum is intact with no evidence for an atrial septal defect or patent foramen ovale as noted on 2-D or Dopple r imaging. AORTIC VALVE The aortic valve is mildly thickened. The aortic valve is trileaflet. Doppler and Color Flow revealed no significant aortic regurgitation. There is no significant aortic valvular stenosis. MITRAL VALVE Mitral annular calcification is mild. There is no evidence of mitral valve prolapse. There is no mitr al valve stenosis. Doppler and Color Flow revealed no mitral valve regurgitation noted. TRICUSPID VALVE The tricuspid valve is normal in structure and function. Doppler and Color Flow revealed trace tricus pid regurgitation. The PA pressure was estimated at 27 mmHg. There is no tricuspid valve prolapse or vegetation. There is no tricuspid valve stenosis. PULMONIC VALVE The pulmonic valve is not well visualized. GREAT VESSELS The aortic root is normal in size. The ascending aorta is normal in size. The IVC is normal in size a nd collapses >50% with inspiration. PERICARDIAL EFFUSION There is no evidence of significant pericardial effusion. Critical Notification Critical Value: No <Conclusion> The left ventricular systolic function is normal and the ejection fraction is within normal range. Th e Ejection Fraction is 55-60%. There is moderate to severe concentric left ventricular hypertrophy. Technically difficult study Grossly normal wall motion. No significant valvular disease. Signed by : Geronimo Cisneros, Electronically Approved : 05/16/2019 09:33:31
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
--- NOTE | 2019-05-16 10:51 | PDOC ---
PROGRESS NOTES Subjective Subjective He feels better using diclofenac gel to his right ankle. Objective Objective Vital Signs Date Time Temp Pulse Resp B/P (MAP) Pulse Ox O2 Delivery O2 Flow Rate FiO2 05/16/19 08:49 87 164/94 05/16/19 07:00 98.1 20 91 Room Air 98.1 05/16/19 03:25 4.0 Intake and Output 05/16/19 07:00 Intake Total 600 ml Output Total 500 ml Balance 100 ml Intake Oral 600 ml Output Urine Total 500 ml Physical Exam Physical Exam He is sitting up at edge of bed and seems to be in no acute distress. He continues with tenderness to palpation over anterio-lateral aspect of right ankle and right tendoachilles and plantar aspect of right heel and right sacroiliac joint. Assessment Assessment Problems Medical Problems: (1) Accelerated hypertension Status: Acute (2) Chest pain Status: Acute Plan Plan of Care I have advised him in a home program of physical modalities and stretching exercises to low back,isometric strengthening exercises to his lower extremity muscles and reviewed with him proper body mechanics and use cam boot and a cane or walker while up,until his right ankle pain goes away,which might take several months. Comment Review of Relevant I have reviewed the following items cl (where applicable) has been applied. Labs Laboratory Tests Test 05/15/19 05:00 Sodium Level 142 mmol/L (136-145) Potassium Level 4.1 mmol/L (3.5-5.1) Chloride Level 100 mmol/L (98-107) Carbon Dioxide Level 35 mmol/L (21-32) Anion Gap 7 (6-14) Blood Urea Nitrogen 14 mg/dL (8-26) Creatinine 1.1 mg/dL (0.7-1.3) Estimated GFR (Cockcroft-Gault) 88.8 Glucose Level 102 mg/dL (70-99) Calcium Level 8.9 mg/dL (8.5-10.1) Triglycerides Level 54 mg/dL (0-150) Cholesterol Level 138 mg/dL (0-200) LDL Cholesterol, Calculated 91 mg/dL (0-100) VLDL Cholesterol, Calculated 11 mg/dL (0-40) Non-HDL Cholesterol Calculated 102 mg/dL (0-129) HDL Cholesterol 36 mg/dL (40-60) Cholesterol/HDL Ratio 3.8 Medications Current Medications Labetalol HCl (Normodyne Iv Push) 20 mg 1X ONCE IVP Last administered on at 21:58; Start 05/13/19 at 22:00; Stop 05/13/19 at 22:01; Status DC Nitroglycerin/ Dextrose 250 ml @ 0 mls/hr 1X ONCE IV Last administered on 05/14/19at 01:02; Start 05/13/19 at 21:45; Stop 05/13/19 at 21:46; Status DC Aspirin (Children'S Aspirin) 324 mg 1X ONCE PO Last administered on 05/13/19at 21:59; Start 05/13/19 at 21:45; Stop 05/13/19 at 21:46; Status DC Nitroglycerin (Nitrostat) 0.4 mg PRN Q5MIN PRN SL CHEST PAIN Last administered on 05/13/19at 22:22; Start 05/13/19 at 22:00; Stop 05/13/19 at 23:31; Status DC Nitroglycerin (Nitro-Bid Oint) 1 inch 1X ONCE TP Last administered on 05/13/19at 23:42; Start 05/13/19 at 23:30; Stop 05/13/19 at 23:31; Status DC Nitroglycerin (Nitrostat) 0.4 mg PRN Q5MIN PRN SL CHEST PAIN; Start 05/13/19 at 23:30; Stop 05/14/19 at 23:29; Status DC Labetalol HCl (Normodyne Iv Push) 20 mg PRN Q2HR PRN IVP ELEVATED BP, SEE COMMENTS Last administered on 05/15/19at 04:24; Start 05/13/19 at 23:30 Morphine Sulfate (Morphine Sulfate) 4 mg PRN Q4HRS PRN IV pain Last ad ministered on 05/14/19at 06:30; Start 05/14/19 at 02:15 Nitroglycerin/ Dextrose 250 ml @ 1.5 mls/hr CONT PRN IV SEE I/O RECORD; Start 05/14/19 at 04:45 Acetaminophen (Tylenol) 500 mg PRN Q6HRS PRN PO MILD PAIN / TEMP Last administered on 05/15/19at 04:58; Start 05/14/19 at 08:33 Amlodipine Besylate (Norvasc) 10 mg DAILY PO Last administered on 05/16/19 08:47; Start 05/14/19 at 09:00 Furosemide (Lasix) 40 mg DAILY PO Last administered on 05/16/19 08:49; Start 05/14/19 at 09:00 Carvedilol (Coreg) 25 mg BIDWMEALS PO Last administered on 05/16/19 08:49; Start 05/14/19 at 09:00 Cephalexin HCl (Keflex) 500 mg BID PO Last administered on 05/16/19 08:47; Start 05/14/19 at 09:00 Non-Formulary Medication (Lisinopril/ Hydrochlorothiazide (Lisinopril-Hctz 20-12 .5 Mg Tab)) 1 tab DAILY PO ; Start 05/14/19 at 09:00; Status UNV Potassium Chloride (Klor-Con) 20 meq DAILYWBKFT PO Last administered on 05/16/19 08:48; Start 05/14/19 at 09:00 Lisinopril (Prinivil) 20 mg DAILY PO ; Start 05/14/19 at 09:00; Stop 05/14/19 at 11:25; Status DC Hydrochlorothiazide (Microzide) 12.5 mg DAILY PO Last administered on 05/16/19 08:49; Start 05/14/19 at 09:00 Lisinopril (Prinivil) 40 mg DAILY PO Last administered on 05/16/19 08:48; Start 05/15/19 at 09:00 Lisinopril (Prinivil) 20 mg 1X ONCE PO Last administered on 05/14/19 12:48; Start 05/14/19 at 12:00; Stop 05/14/19 at 12:01; Status DC Hydralazine HCl (Apresoline) 25 mg TID PO Last administered on 05/15/19 09:33; Start 05/14/19 at 12:00; Stop 05/15/19 at 12:01; Status DC Enoxaparin Sodium (Lovenox Per Pharmacy Prophylaxis Dosing) 1 each PRN DAILY PRN MC SEE COMMENTS; Start 05/14/19 at 11:45 Enoxaparin Sodium (Lovenox 60mg Syringe) 60 mg Q12HR SQ Last administered on 05/16/19 08:49; Start 05/14/19 at 12:00 Diclofenac Sodium (Voltaren) 1 stefan BID TP Last administered on 05/16/19at 08:51; Start 05/15/19 at 10:00 Tramadol HCl (Ultram) 50 mg PRN Q6HRS PRN PO PAIN Last administered on 05/16/19at 08:54; Start 05/15/19 at 12:15 Active Scripts Active Amlodipine Besylate 10 Mg Tablet 10 Mg PO DAILY Lisinopril 40 Mg Tablet 40 Mg PO DAILY Carvedilol 25 Mg Tablet 25 Mg PO BIDWMEALS Potassium Chloride 20 Meq Tablet.er 20 Meq PO DAILY Hydrochlorothiazide Tablet (Hydrochlorothiazide) 12.5 Mg Tablet 12.5 Mg PO DAILY Lasix (Furosemide) 40 Mg Tablet 1 Tab PO DAILY Norvasc (Amlodipine Besylate) 5 Mg Tablet 10 Mg PO DAILY Reported Cephalexin 500 Mg Capsule 1 Cap PO BID Acetaminophen 500 Mg Tablet 500 Mg PO Q6HRS Lisinopril-Hctz 20-12.5 Mg Tab (Lisinopril/Hydrochlorothiazide) 1 Each Tablet 1 Tab PO DAILY Vitals/I & O Vital Sign - Last 24 Hours 05/15/19 05/15/19 05/15/19 05/15/19 11:00 15:00 18:00 19:15 Temp 97.7 97.5 97.8 97.7 97.5 97.8 Pulse 82 83 82 80 Resp 20 20 20 B/P (MAP) 153/75 (101) 112/53 (72) 153/75 165/91 (115) Pulse Ox 92 94 99 O2 Delivery Nasal Cannula Nasal Cannula Nasal Cannula O2 Flow Rate 3.0 3.0 2.0 05/15/19 05/15/19 05/16/19 05/16/19 20:30 22:45 02:48 03:25 Temp 98.2 98.1 98.2 98.1 Pulse 83 82 82 Resp 18 22 B/P (MAP) 167/100 (122) 183/92 (122) 182/101 (128) Pulse Ox 96 94 100 O2 Delivery Nasal Cannula Room Air Room Air Nasal Cannula O2 Flow Rate 2.0 4.0 05/16/19 05/16/19 05/16/19 05/16/19 04:25 07:00 08:47 08:48 Temp 98.1 98.1 Pulse 87 81 87 87 Resp 20 B/P (MAP) 144/77 (99) 164/94 (117) 164/94 164/94 Pulse Ox 91 O2 Delivery Room Air 05/16/19 08:49 Pulse 87 B/P (MAP) 164/94 Intake and Output 05/15/19 05/15/19 05/16/19 15:00 23:00 07:00 Intake Total 600 ml Output Total 500 ml Balance -500 ml 600 ml BERLIN GUTIERREZ MD May 16, 2019 10:51
[2019-05-16] MEDS: LABETALOL 20 MG/4 ML DISP.SYRIN. IVP PRN (14:04)
--- NOTE | 2019-05-16 18:00 | PDOC ---
PROGRESS NOTES Subjective Subjective Patient seen and examined Objective Objective Vital Signs Date Time Temp Pulse Resp B/P (MAP) Pulse Ox O2 Delivery O2 Flow Rate FiO2 05/16/19 17:31 75 176/119 (138) 05/16/19 15:00 98.6 20 93 Nasal Cannula 3.0 98.6 Intake and Output 05/16/19 07:00 Intake Total 600 ml Output Total 500 ml Balance 100 ml Intake Oral 600 ml Output Urine Total 500 ml Physical Exam Abdomen: Normal bowel sounds Heart: Regular rate General: mild distress Lungs: Other (slightly decreased breath sounds) Assessment Assessment Problems Medical Problems: (1) Accelerated hypertension Status: Acute (2) Chest pain Status: Acute 1. Malignant hypertension. Improved today but still elevated. Long-term problem with episodes of noncompliance. Echocardiogram today shows significant LVH secondary to his hypertension. We'll continue present medications and increase lisinopril to twice a day. Anticipate the patient may need an additional medication tomorrow. 2. Shortness of breath. Consistent with diastolic heart failure. Continuing present treatments. Echocardiogram as above. 3. Chest discomfort. Significantly improved. 4. Diabetes mellitus. As per the primary service. 5. History of sleep apnea. Comment Review of Relevant I have reviewed the following items cl (where applicable) has been applied. Labs Laboratory Tests Test 05/15/19 05:00 Sodium Level 142 mmol/L (136-145) Potassium Level 4.1 mmol/L (3.5-5.1) Chloride Level 100 mmol/L (98-107) Carbon Dioxide Level 35 mmol/L (21-32) Anion Gap 7 (6-14) Blood Urea Nitrogen 14 mg/dL (8-26) Creatinine 1.1 mg/dL (0.7-1.3) Estimated GFR (Cockcroft-Gault) 88.8 Glucose Level 102 mg/dL (70-99) Calcium Level 8.9 mg/dL (8.5-10.1) Triglycerides Level 54 mg/dL (0-150) Cholesterol Level 138 mg/dL (0-200) LDL Cholesterol, Calculated 91 mg/dL (0-100) VLDL Cholesterol, Calculated 11 mg/dL (0-40) Non-HDL Cholesterol Calculated 102 mg/dL (0-129) HDL Cholesterol 36 mg/dL (40-60) Cholesterol/HDL Ratio 3.8 Medications Current Medications Labetalol HCl (Normodyne Iv Push) 20 mg 1X ONCE IVP Last administered on 05/13/19 21:58; Start 05/13/19 at 22:00; Stop 05/13/19 at 22:01; Status DC Nitroglycerin/ Dextrose 250 ml @ 0 mls/hr 1X ONCE IV Last administered on 05/14/19at 01:02; Start 05/13/19 at 21:45; Stop 05/13/19 at 21:46; Status DC Aspirin (Children'S Aspirin) 324 mg 1X ONCE PO Last administered on 05/13/19at 21:59; Start 05/13/19 at 21:45; Stop 05/13/19 at 21:46; Status DC Nitroglycerin (Nitrostat) 0.4 mg PRN Q5MIN PRN SL CHEST PAIN Last administered on 05/13/19at 22:22; Start 05/13/19 at 22:00; Stop 05/13/19 at 23:31; Status DC Nitroglycerin (Nitro-Bid Oint) 1 inch 1X ONCE TP Last administered on 05/13/19at 23:42; Start 05/13/19 at 23:30; Stop 05/13/19 at 23:31; Status DC Nitroglycerin (Nitrostat) 0.4 mg PRN Q5MIN PRN SL CHEST PAIN; Start 05/13/19 at 23:30; Stop 05/14/19 at 23:29; Status DC Labetalol HCl (Normodyne Iv Push) 20 mg PRN Q2HR PRN IVP ELEVATED BP, SEE COMMENTS Last administered on 05/16/19at 14:04; Start 05/13/19 at 23:30 Morphine Sulfate (Morphine Sulfate) 4 mg PRN Q4HRS PRN IV pain Last administered on 05/14/19at 06:30; Start 05/14/19 at 02:15 Nitroglycerin/ Dextrose 250 ml @ 1.5 mls/hr CONT PRN IV SEE I/O RECORD; Start 05/14/19 at 04:45 Acetaminophen (Tylenol) 500 mg PRN Q6HRS PRN PO MILD PAIN / TEMP Last administered on 05/15/19 04:58; Start 05/14/19 at 08:33 Amlodipine Besylate (Norvasc) 10 mg DAILY PO Last administered on 10/8/19at 08:47; Start 05/14/19 at 09:00 Furosemide (Lasix) 40 mg DAILY PO Last administered on 05/16/19 08:49; Start 05/14/19 at 09:00 Carvedilol (Coreg) 25 mg BIDWMEALS PO Last administered on 05/16/19 17:31; Start 05/14/19 at 09:00 Cephalexin HCl (Keflex) 500 mg BID PO Last administered on 05/16/19 08:47; Start 05/14/19 at 09:00 Non-Formulary Medication (Lisinopril/ Hydrochlorothiazide (Lisinopril-Hctz 20- 12.5 Mg Tab)) 1 tab DAILY PO ; Start 05/14/19 at 09:00; Status UNV Potassium Chloride (Klor-Con) 20 meq DAILYWBKFT PO Last administered on 05/16/19 08:48; Start 05/14/19 at 09:00 Lisinopril (Prinivil) 20 mg DAILY PO ; Start 05/14/19 at 09:00; Stop 05/14/19 at 11:25; Status DC Hydrochlorothiazide (Microzide) 12.5 mg DAILY PO Last administered on 05/16/19 08:49; Start 05/14/19 at 09:00 Lisinopril (Prinivil) 40 mg DAILY PO Last administered on 05/16/19 08:48; Start 05/15/19 at 09:00 Lisinopril (Prinivil) 20 mg 1X ONCE PO Last administered on 05/14/19at 12:48; Start 05/14/19 at 12:00; Stop 05/14/19 at 12:01; Status DC Hydralazine HCl (Apresoline) 25 mg TID PO Last administered on 05/15/19 09:33; Start 05/14/19 at 12:00; Stop 05/15/19 at 12:01; Status DC Enoxaparin Sodium (Lovenox Per Pharmacy Prophylaxis Dosing) 1 each PRN DAILY PRN MC SEE COMMENTS; Start 05/14/19 at 11:45 Enoxaparin Sodium (Lovenox 60mg Syringe) 60 mg Q12HR SQ Last administered on 05/16/19 08:49; Start 05/14/19 at 12:00 Diclofenac Sodium (Voltaren) 1 stefan BID TP Last administered on 05/16/19at 08:51; Start 05/15/19 at 10:00 Tramadol HCl (Ultram) 50 mg PRN Q6HRS PRN PO MODERATE PAIN Last administered on 05/16/19at 16:41; Start 05/15/19 at 12:15 Lactobacillus Rhamnosus (Culturelle) 1 cap BID PO ; Start 05/16/19 at 21:00 Active Scripts Active Amlodipine Besylate 10 Mg Tablet 10 Mg PO DAILY Lisinopril 40 Mg Tablet 40 Mg PO DAILY Carvedilol 25 Mg Tablet 25 Mg PO BIDWMEALS Potassium Chloride 20 Meq Tablet.er 20 Meq PO DAILY Hydrochlorothiazide Tablet (Hydrochlorothiazide) 12.5 Mg Tablet 12.5 Mg PO DAILY Lasix (Furosemide) 40 Mg Tablet 1 Tab PO DAILY Norvasc (Amlodipine Besylate) 5 Mg Tablet 10 Mg PO DAILY Reported Cephalexin 500 Mg Capsule 1 Cap PO BID Acetaminophen 500 Mg Tablet 500 Mg PO Q6HRS Lisinopril-Hctz 20-12.5 Mg Tab (Lisinopril/Hydrochlorothiazide) 1 Each Tablet 1 Tab PO DAILY Vitals/I & O Vital Sign - Last 24 Hours 05/15/19 05/15/19 05/15/19 05/15/19 18:00 19:15 20:30 22:45 Temp 97.8 98.2 97.8 98.2 Pulse 82 80 83 Resp 20 18 B/P (MAP) 153/75 165/91 (115) 167/100 (122) Pulse Ox 99 96 O2 Delivery Nasal Cannula Nasal Cannula Room Air O2 Flow Rate 2.0 2.0 05/16/19 05/16/19 05/16/19 05/16/19 02:48 03:25 04:25 07:00 Temp 98.1 98.1 98.1 98.1 Pulse 82 82 87 81 Resp 22 20 B/P (MAP) 183/92 (122) 182/101 (128) 144/77 (99) 164/94 (117) Pulse Ox 94 100 91 O2 Delivery Room Air Nasal Cannula Room Air O2 Flow Rate 4.0 05/16/19 05/16/19 05/16/19 05/16/19 08:00 08:47 08:48 08:49 Pulse 87 87 87 B/P (MAP) 164/94 164/94 164/94 O2 Delivery Nasal Cannula O2 Flow Rate 3.0 05/16/19 05/16/19 05/16/19 05/16/19 11:30 14:04 15:00 17:31 Temp 98.1 98.6 98.1 98.6 Pulse 78 77 77 78 Resp 20 20 B/P (MAP) 164/96 (118) 186/98 186/98 (127) 176/119 Pulse Ox 2 93 O2 Delivery Room Air Nasal Cannula O2 Flow Rate 3.0 05/16/19 17:31 Pulse 75 B/P (MAP) 176/119 (138) Intake and Output 05/15/19 05/15/19 05/16/19 15:00 23:00 07:00 Intake Total 600 ml Output Total 500 ml Balance -500 ml 600 ml DARRELL JUNG MD May 16, 2019 18:00
[2019-05-16] MEDS: DOCUSATE SODIUM 100 MG CAPSULE. PO PRN (22:11)
[2019-05-16] MEDS: LACTOBACILLUS RHAMNOSUS GG 1 CAPSULE. PO SCH (22:13)
[2019-05-17 03:00] VITALS: BP 152/94
[2019-05-17 05:36] LABS: BASO % 1 % (0-3); EOS # 0.2 x10^3/uL (0.0-0.7); EOS % 5 % (0-3); HEMATOCRIT 42.1 % (39.0-53.0); HEMOGLOBIN 13.4 g/dL (13.0-17.5); LYMPH % 22 % (24-48); MEAN CORPUSCULAR HEMOGLOBIN 27 pg (25-35); MEAN CORPUSCULAR HGB CONC 32 g/dL (31-37); MEAN CORPUSCULAR VOLUME 83 fL (79-100); MONO # 0.7 x10^3/uL (0.0-1.1); MONO % 15 % (0-9); NEUT # 2.6 x10^3/uL (1.8-7.7); NEUT % 58 % (31-73); PLATELET COUNT 241 x10^3/uL (140-400); RED BLOOD COUNT 5.05 x10^6/uL (4.30-5.70); RED CELL DISTRIBUTION WIDTH 16.7 % (11.5-14.5); WHITE BLOOD COUNT 4.5 x10^3/uL (4.0-11.0)
[2019-05-17 07:33] VITALS: BP 145/84
[2019-05-17] MEDS: LISINOPRIL 20 MG TABLET PO SCH (08:09)
[2019-05-17] MEDS: DOCUSATE SODIUM 100 MG CAPSULE. PO PRN (08:09)
[2019-05-17] MEDS: CARVEDILOL 12.5 MG TABLET. PO SCH ×2 (08:09→16:21)
[2019-05-17] MEDS: CEPHALEXIN 250 MG CAPSULE. PO SCH (08:09)
[2019-05-17] MEDS: hydroCHLOROthiazide 12.5 MG CAPSULE PO SCH (08:10)
[2019-05-17] MEDS: FUROSEMIDE 40 MG TABLET. PO SCH (08:10)
[2019-05-17] MEDS: LACTOBACILLUS RHAMNOSUS GG 1 CAPSULE. PO SCH (08:10)
[2019-05-17] MEDS: amLODIPine BESYLATE 10 MG TABLET PO SCH (08:10)
[2019-05-17] MEDS: POTASSIUM CHLORIDE 20 MEQ TABLET.ER. PO SCH (08:10)
[2019-05-17] MEDS: DICLOFENAC SODIUM 1% TOPICAL GEL 100GM TUBE. TP SCH (08:11)
[2019-05-17 10:36] VITALS: BP 143/79
[2019-05-17] MEDS: traMADol 50 MG TABLET PO PRN (10:49)
--- NOTE | 2019-05-17 12:41 | PDOC ---
PROGRESS NOTES Subjective Subjective He c/o chest pain while walking this AM but feels better after lying in bed. Objective Objective Vital Signs Date Time Temp Pulse Resp B/P (MAP) Pulse Ox O2 Delivery O2 Flow Rate FiO2 05/17/19 10:49 Room Air 05/17/19 10:36 97.4 83 20 143/79 (100) 88 97.4 05/17/19 03:00 2.0 Intake and Output 05/17/19 06:59 Intake Total 760 ml Output Total 1150 ml Balance -390 ml Intake Oral 760 ml Output Urine Total 1150 ml Physical Exam Physical Exam He is alert,comfortable,supine in bed and he continues with tenderness to pal pation over anterio lateral aspect of right ankle and right sacroiliac joint area but remains independent with his mobility and self care. Assessment Assessment Problems Medical Problems: (1) Accelerated hypertension Status: Acute (2) Chest pain Status: Acute Plan Plan of Usp when medically stable. Comment Review of Relevant I have reviewed the following items cl (where applicable) has been applied. Labs Laboratory Tests Test 05/17/19 04:19 White Blood Count 4.5 x10^3/uL (4.0-11.0) Red Blood Count 5.05 x10^6/uL (4.30-5.70) Hemoglobin 13.4 g/dL (13.0-17.5) Hematocrit 42.1 % (39.0-53.0) Mean Corpuscular Volume 83 fL (79-100) Mean Corpuscular Hemoglobin 27 pg (25-35) Mean Corpuscular Hemoglobin Concent 32 g/dL (31-37) Red Cell Distribution Width 16.7 % (11.5-14.5) Platelet Count 241 x10^3/uL (140-400) Neutrophils (%) (Auto) 58 % (31-73) Lymphocytes (%) (Auto) 22 % (24-48) Monocytes (%) (Auto) 15 % (0-9) Eosinophils (%) (Auto) 5 % (0-3) Basophils (%) (Auto) 1 % (0-3) Neutrophils # (Auto) 2.6 x10^3/uL (1.8-7.7) Lymphocytes # (Auto) 1.0 x10^3/uL (1.0-4.8) Monocytes # (Auto) 0.7 x10^3/uL (0.0-1.1) Eosinophils # (Auto) 0.2 x10^3/uL (0.0-0.7) Basophils # (Auto) 0.0 x10^3/uL (0.0-0.2) Laboratory Tests Test 05/17/19 04:19 White Blood Count 4.5 x10^3/uL (4.0-11.0) Red Blood Count 5.05 x10^6/uL (4.30-5.70) Hemoglobin 13.4 g/dL (13.0-17.5) Hematocrit 42.1 % (39.0-53.0) Mean Corpuscular Volume 83 fL (79-100) Mean Corpuscular Hemoglobin 27 pg (25-35) Mean Corpuscular Hemoglobin Concent 32 g/dL (31-37) Red Cell Distribution Width 16.7 % (11.5-14.5) Platelet Count 241 x10^3/uL (140-400) Neutrophils (%) (Auto) 58 % (31-73) Lymphocytes (%) (Auto) 22 % (24-48) Monocytes (%) (Auto) 15 % (0-9) Eosinophils (%) (Auto) 5 % (0-3) Basophils (%) (Auto) 1 % (0-3) Neutrophils # (Auto) 2.6 x10^3/uL (1.8-7.7) Lymphocytes # (Auto) 1.0 x10^3/uL (1.0-4.8) Monocytes # (Auto) 0.7 x10^3/uL (0.0-1.1) Eosinophils # (Auto) 0.2 x10^3/uL (0.0-0.7) Basophils # (Auto) 0.0 x10^3/uL (0.0-0.2) Medications Current Medications Labetalol HCl (Normodyne Iv Push) 20 mg 1X ONCE IVP Last administered on 05/13/19at 21:58; Start 05/13/19 at 22:00; Stop 05/13/19 at 22:01; Status DC Nitroglycerin/ Dextrose 250 ml @ 0 mls/hr 1X ONCE IV Last administered on 05/14/19at 01:02; Start 05/13/19 at 21:45; Stop 05/13/19 at 21:46; Status DC Aspirin (Children'S Aspirin) 324 mg 1X ONCE PO Last administered on 05/13/19at 21:59; Start 05/13/19 at 21:45; Stop 05/13/19 at 21:46; Status DC Nitroglycerin (Nitrostat) 0.4 mg PRN Q5MIN PRN SL CHEST PAIN Last administered on 05/13/19at 22:22; Start 05/13/19 at 22:00; Stop 05/13/19 at 23:31; Status DC Nitroglycerin (Nitro-Bid Oint) 1 inch 1X ONCE TP Last administered on 05/13/19at 23:42; Start 05/13/19 at 23:30; Stop 05/13/19 at 23:31; Status DC Nitroglycerin (Nitrostat) 0.4 mg PRN Q5MIN PRN SL CHEST PAIN; Start 05/13/19 at 23:30; Stop 05/14/19 at 23:29; Status DC Labetalol HCl (Normodyne Iv Push) 20 mg PRN Q2HR PRN IVP ELEVATED BP, SEE COMMENTS Last administered on 05/16/19at 14:04; Start 05/13/19 at 23:30 Morphine Sulfate (Morphine Sulfate) 4 mg PRN Q4HRS PRN IV pain Last administered on 05/14/19at 06:30; Start 05/14/19 at 02:15 Nitroglycerin/ Dextrose 250 ml @ 1.5 mls/hr CONT PRN IV SEE I/O RECORD; Start 05/14/19 at 04:45 Acetaminophen (Tylenol) 500 mg PRN Q6HRS PRN PO MILD PAIN / TEMP Last administered on 05/15/19at 04:58; Start 05/14/19 at 08:33 Amlodipine Besylate (Norvasc) 10 mg DAILY PO Last administered on 05/17/19 08:10; Start 05/14/19 at 09:00 Furosemide (Lasix) 40 mg DAILY PO Last administered on 05/17/19at 08:10; Start 05/14/19 at 09:00 Carvedilol (Coreg) 25 mg BIDWMEALS PO Last administered on 05/17/19 08:09; Start 05/14/19 at 09:00 Cephalexin HCl (Keflex) 500 mg BID PO Last administered on 05/17/19 08:09; Start 05/14/19 at 09:00 Non-Formulary Medication (Lisinopril/ Hydrochlorothiazide (Lisinopril-Hctz 20- 12.5 Mg Tab)) 1 tab DAILY PO ; Start 05/14/19 at 09:00; Status UNV Potassium Chloride (Klor-Con) 20 meq DAILYWBKFT PO Last administered on 05/17/19at 08:10; Start 05/14/19 at 09:00 Lisinopril (Prinivil) 20 mg DAILY PO ; Start 05/14/19 at 09:00; Stop 05/14/19 at 11:25; Status DC Hydrochlorothiazide (Microzide) 12.5 mg DAILY PO Last administered on 05/17/19 08:10; Start 05/14/19 at 09:00 Lisinopril (Prinivil) 40 mg DAILY PO Last administered on 05/16/19 08:48; Start 05/15/19 at 09:00; Stop 05/16/19 at 17:57; Status DC Lisinopril (Prinivil) 20 mg 1X ONCE PO Last administered on 05/14/19 12:48; Start 05/14/19 at 12:00; Stop 05/14/19 at 12:01; Status DC Hydralazine HCl (Apresoline) 25 mg TID PO Last administered on 05/15/19 09:33; Start 05/14/19 at 12:00; Stop 05/15/19 at 12:01; Status DC Enoxaparin Sodium (Lovenox Per Pharmacy Prophylaxis Dosing) 1 each PRN DAILY PRN MC SEE COMMENTS; Start 05/14/19 at 11:45 Enoxaparin Sodium (Lovenox 60mg Syringe) 60 mg Q12HR SQ Last administered on 05/17/19 08:11; Start 05/14/19 at 12:00 Diclofenac Sodium (Voltaren) 1 stefan BID TP Last administered on 05/17/19 08:11; Start 05/15/19 at 10:00 Tramadol HCl (Ultram) 50 mg PRN Q6HRS PRN PO MODERATE PAIN Last administered on 05/17/19at 10:49; Start 05/15/19 at 12:15 Lactobacillus Rhamnosus (Culturelle) 1 cap BID PO Last administered on 05/17/19at 08:10; Start 05/16/19 at 21:00 Lisinopril (Prinivil) 40 mg BID PO Last administered on 05/17/19at 08:09; Start 05/16/19 at 21:00 Docusate Sodium (Colace) 100 mg PRN BID PRN PO CONSTIPATION Last administered on 05/17/19at 08:09; Start 05/16/19 at 21:00 Active Scripts Active Amlodipine Besylate 10 Mg Tablet 10 Mg PO DAILY Lisinopril 40 Mg Tablet 40 Mg PO DAILY Carvedilol 25 Mg Tablet 25 Mg PO BIDWMEALS Potassium Chloride 20 Meq Tablet.er 20 Meq PO DAILY Hydrochlorothiazide Tablet (Hydrochlorothiazide) 12.5 Mg Tablet 12.5 Mg PO DAILY Lasix (Furosemide) 40 Mg Tablet 1 Tab PO DAILY Norvasc (Amlodipine Besylate) 5 Mg Tablet 10 Mg PO DAILY Reported Cephalexin 500 Mg Capsule 1 Cap PO BID Acetaminophen 500 Mg Tablet 500 Mg PO Q6HRS Lisinopril-Hctz 20-12.5 Mg Tab (Lisinopril/Hydrochlorothiazide) 1 Each Tablet 1 Tab PO DAILY Vitals/I & O Vital Sign - Last 24 Hours 05/16/19 05/16/19 05/16/19 05/16/19 14:04 15:00 17:31 17:31 Temp 98.6 98.6 Pulse 77 77 78 75 Resp 20 B/P (MAP) 186/98 186/98 (127) 176/119 176/119 (138) Pulse Ox 93 O2 Delivery Nasal Cannula O2 Flow Rate 3.0 05/16/19 05/16/19 05/16/19 05/16/19 19:10 20:00 22:13 22:50 Temp 98.0 98.4 98.0 98.4 Pulse 76 84 76 Resp 22 20 B/P (MAP) 166/101 (122) 166/101 196/104 (134) Pulse Ox 96 97 O2 Delivery Nasal Cannula Nasal Cannula Nasal Cannula O2 Flow Rate 3.0 3.0 2.0 05/17/19 05/17/19 05/17/19 05/17/19 03:00 07:33 08:09 08:09 Temp 98.2 98.0 98.2 98.0 Pulse 85 83 83 83 Resp 20 20 B/P (MAP) 152/94 (113) 145/84 (104) 145/84 145/84 Pulse Ox 95 86 O2 Delivery Nasal Cannula Room Air O2 Flow Rate 2.0 05/17/19 05/17/19 05/17/19 05/17/19 08:10 08:15 10:36 10:49 Temp 97.4 97.4 Pulse 83 83 Resp 20 B/P (MAP) 145/84 143/79 (100) Pulse Ox 88 O2 Delivery Room Air Room Air Room Air Intake and Output 05/16/19 05/16/19 05/17/19 14:59 22:59 06:59 Intake Total 400 ml 360 ml Output Total 400 ml 300 ml 450 ml Balance -400 ml 100 ml -90 ml BERLIN GUTIERREZ MD May 17, 2019 12:41
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
--- NOTE | 2019-05-17 14:13 | PDOC ---
C[facility] Progress Notes Date and Time Date of Service 05/17/19 Time of Evaluation 1310 Subjective Subjective: No Palpitations, Other (c/o ongoing LE edema ) Vitals Vitals Vital Signs Date Time Temp Pulse Resp B/P (MAP) Pulse Ox O2 Delivery O2 Flow Rate FiO2 05/17/19 10:49 Room Air 05/17/19 10:36 97.4 83 20 143/79 (100) 88 97.4 05/17/19 03:00 2.0 Weight Weight [ ] Input and Output Intake and Output Intake and Output 05/17/19 06:59 Intake Total 760 ml Output Total 1150 ml Balance -390 ml Intake Oral 760 ml Output Urine Total 1150 ml Laboratory Labs Laboratory Tests Test 05/17/19 04:19 White Blood Count 4.5 x10^3/uL (4.0-11.0) Red Blood Count 5.05 x10^6/uL (4.30-5.70) Hemoglobin 13.4 g/dL (13.0-17.5) Hematocrit 42.1 % (39.0-53.0) Mean Corpuscular Volume 83 fL (79-100) Mean Corpuscular Hemoglobin 27 pg (25-35) Mean Corpuscular Hemoglobin Concent 32 g/dL (31-37) Red Cell Distribution Width 16.7 % (11.5-14.5) Platelet Count 241 x10^3/uL (140-400) Neutrophils (%) (Auto) 58 % (31-73) Lymphocytes (%) (Auto) 22 % (24-48) Monocytes (%) (Auto) 15 % (0-9) Eosinophils (%) (Auto) 5 % (0-3) Basophils (%) (Auto) 1 % (0-3) Neutrophils # (Auto) 2.6 x10^3/uL (1.8-7.7) Lymphocytes # (Auto) 1.0 x10^3/uL (1.0-4.8) Monocytes # (Auto) 0.7 x10^3/uL (0.0-1.1) Eosinophils # (Auto) 0.2 x10^3/uL (0.0-0.7) Basophils # (Auto) 0.0 x10^3/uL (0.0-0.2) Physical Exam HEENT: Neck Supple W Full Motion Chest: Symmetric LUNGS: Clear to Auscultation, Other (diminished bases) Heart: S1S2, RRR Abdomen: Soft N/T, Other (obese ) Extremities: Other (1-2+ bilateral LE edema ) Neurology: alert, oriented, follow commands Assessment Assessment 1. Malignant hypertension; better controlled. H/o noncompliance. Echo with LVH secondary to uncontrolled hypertension. 2. Acute diastolic heart failure most probably secondary to uncontrolled hypertension. Echo preserved LV systolic function. 3. Chest pain, atypical. AMI rule out. 4. Diabetes, II; as per PCP. 5. QUITA 6. Morbid obesity Recommendations Diuresis Add hydralazine for BP control Discussed/encouraged medical compliance 2Gm Na diet. 2000cc FR Encouraged weight loss Supportive care GARFIELD YANEZ APRN May 17, 2019 14:13
[2019-05-17 14:42] VITALS: BP 155/90
[2019-05-17] MEDS ORDERED: FUROSEMIDE 40 MG/4 ML VIAL. IVP ONE (16:00)
[2019-05-17] MEDS ORDERED: POTASSIUM CHLORIDE 20 MEQ TABLET.ER. PO ONE (16:15)
[2019-05-17 16:21] VITALS: BP 155/90
--- NOTE | 2019-05-17 18:55 | NUR ---
Discharge Note: ZARA CONLEY Discharge instructions and discharge home medications reviewed with Patient and a copy given. All questions have been answered and understanding verbalized. The following instructions and handouts were given: CP, NA and Fluid restriction, Cardiac diet, weight loss, HTN Discontinued lines and drains: Peripheral IV intact. Patient discharged to Home or Self Care with Family Member via Wheelchair
--- NOTE | 2019-05-19 08:50 | DS ---
DATE OF DISCHARGE: 05/17/2019 ADMISSION DIAGNOSIS: Accelerated hypertension. DISCHARGE DIAGNOSIS: Resolving accelerated hypertension. HOSPITAL COURSE: The patient is a pleasant 44-year-old male who we believe is homeless. Basically, he presented with accelerated hypertension into the 200s. We admitted the patient, got his pressures under control. On the day of discharge, his pressure was down to 143/79. He looked great. His ejection fraction on echo was normal at 55%. We discharged and have [employer] assist with his discharge planning in terms of living arrangements. DISPOSITION: Home. ACTIVITY: As tolerated. DIET: Low sodium. MEDICATIONS: Please see the MRAD. TOTAL TIME: 32 minutes. FRANCO ARNOLD DO DR: LAQUITA/jaylen JOB#: [id number] / [id number]
== END 2019-05-17 18:57 | disposition home or self-care (01) | DRG 292 ==
LOC: ER 21:14 → 2 NORTH 23:15
PROVIDERS: ADMIT Family Medicine; ATTEND Family Medicine
DX: I11.0 Hypertensive heart disease with heart failure (principal); Z68.43 Body mass index [BMI] 50.0-59.9, adult; E11.9 Type 2 diabetes mellitus without complications; I50.33 Acute on chronic diastolic (congestive) heart failure; E66.01 Morbid (severe) obesity due to excess calories; E78.5 Hyperlipidemia, unspecified; F17.210 Nicotine dependence, cigarettes, uncomplicated; G47.33 Obstructive sleep apnea (adult) (pediatric); F32.9 Major depressive disorder, single episode, unspecified; G89.29 Other chronic pain; I20.9 Angina pectoris, unspecified; K21.9 Gastro-esophageal reflux disease without esophagitis; R09.02 Hypoxemia; Z82.49 Family history of ischemic heart disease and other diseases of the circulatory system; Z86.61 Personal history of infections of the central nervous system; Z90.49 Acquired absence of other specified parts of digestive tract; Z91.19 Patient's noncompliance with other medical treatment and regimen; F41.9 Anxiety disorder, unspecified; M19.90 Unspecified osteoarthritis, unspecified site; Z88.8 Allergy status to other drugs, medicaments and biological substances; Z79.899 Other long term (current) drug therapy
CPT/HCPCS: 36415; 71045; 73610; 80048; 80053; 80061; 83880; 84484; 85025; 85610; 93005; 93306; 94618; 96365; 96375; J1650; J1940; J2270; J3490; 99291-25; G0378